=== PATIENT | female | born 1990 | race Caucasian/White ===

== ENCOUNTER 2022-08-20 14:12 | Outpatient (CLI) | payer BC ==
[2022-08-20] MEDS ORDERED: GADOTERATE MEGLUMINE 7.5 MMOL/15 ML VIAL IV ONE (14:37)
== END 2022-08-20 20:42 | disposition home or self-care (01) ==
LOC: SMI 14:12
PROVIDERS: ATTEND Specialist
DX: D25.9 Leiomyoma of uterus, unspecified (principal); N85.2 Hypertrophy of uterus
CPT/HCPCS: 72198; A9575

== ENCOUNTER 2022-09-12 08:38 | Day surgery (SDC) | payer BC ==
[2022-09-07 12:55] LABS: BASOPHILS % (AUTO) 0.3 % (0.0-2.0); EOSINOPHILS # (AUTO) 0.4 K/uL (0.0-0.4); HEMATOCRIT 42.9 % (36-48); HEMOGLOBIN 14.6 g/dL (12.0-16.0); LYMPHOCYTES # (AUTO) 3.2 K/uL (1.0-5.5); LYMPHOCYTES % (AUTO) 36.9 % (20.5-51.5); MEAN CORPUSCULAR HEMOGLOBIN 30 pg (27-31); MEAN CORPUSCULAR HGB CONC 34 % (32-36); MEAN CORPUSCULAR VOLUME 88 fL (79.0-98.0); MONOCYTES # (AUTO) 0.5 K/uL (0.0-1.0); MONOCYTES % (AUTO) 5.6 % (1.7-9.3); NEUTROPHILS # (AUTO) 4.7 K/uL (1.8-7.7); NEUTROPHILS % (AUTO) 53.2 % (40.0-70.0); PLATELET COUNT (AUTO) 283 K/uL (130-430); RED BLOOD CELL COUNT(AUTO) 4.91 MIL/uL (4.2-6.2); RED CELL DISTRIBUTION WIDTH 13.7 % (9.0-15.0); WHITE BLOOD COUNT (AUTO) 8.8 K/uL (4.8-10.8)
[2022-09-07 13:03] LABS: HCG,QUAL RESULT NEGATIVE (NEGATIVE)
[2022-09-07 13:06] LABS: BILIRUBIN,URINE NEGATIVE (NEGATIVE); BLOOD, URINE NEGATIVE (NEGATIVE); CLARITY/URINE CLEAR (CLEAR); COLOR,URINE YELLOW (YELLOW); GLUCOSE,URINE NEGATIVE (NEGATIVE); KETONES,URINE NEGATIVE (NEGATIVE); LEUKOCYTE ESTERASE ,URINE NEGATIVE (NEGATIVE); NITRITE, URINE NEGATIVE (NEGATIVE); PROTEIN URINE NEGATIVE (NEGATIVE); UROBILINOGEN,URINE 0.2 (0.2-1.0)
[~2022-09-12] VITALS: Ht 167.6 cm; Wt 97.5 kg
[~2022-09-12 08:38] MED LIST: ceFAZolin SODIUM 2 GM in D5W 50 ML IV ONE
[2022-09-12 09:27] LABS: HCG,QUAL RESULT NEGATIVE (NEGATIVE)
[2022-09-12] MEDS ORDERED: FUROSEMIDE 20 MG/2 ML VIAL IVP ONE (10:30)
[2022-09-12] MEDS ORDERED: NS IRRIG SOLN 1000 ML IR ONE (10:30)
[2022-09-12] MEDS ORDERED: DESFLURANE 15 MIN GAS INH ONE (10:30)
[2022-09-12] MEDS ORDERED: NS 1000 ML IV.SOLN IV ONE (10:30)
[2022-09-12] MEDS ORDERED: ONDANSETRON HCL 4 MG/2 ML VIAL IVP ONE (10:30)
[2022-09-12] MEDS ORDERED: MIDAZOLAM HCL 5 MG/5 ML VIAL IVP ONE (10:30)
[2022-09-12] MEDS ORDERED: BUPIVACAINE /EPINEPHRINE/PF 0.5% 30 ML VIAL INJ ONE (10:30)
[2022-09-12] MEDS ORDERED: ROCURONIUM BROMIDE 10 MG/ML (ZEMURON) IV ONE (10:30)
[2022-09-12] MEDS ORDERED: LIDOCAINE 2%, 20 ML MDV INJ ONE (10:30)
[2022-09-12] MEDS ORDERED: DEXAMETHASONE SOD PHOSPHATE 4 MG/ML VIAL IVP ONE (10:30)
[2022-09-12] MEDS ORDERED: KETOROLAC TROMETHAMINE 30 MG VIAL IVP ONE (10:30)
[2022-09-12] MEDS ORDERED: fentaNYL CITRATE 250 MCG/5 ML AMP IV ONE (10:30)
[2022-09-12] MEDS ORDERED: LR 1,000 ML IV.SOLN IV ONE (10:30)
[2022-09-12] MEDS ORDERED: SUGAMMADEX SODIUM 200 MG/2 ML VIAL IV ONE (10:30)
[2022-09-12] MEDS ORDERED: PROPOFOL 200MG/ 20ML VIAL (DIPRIVAN) IV ONE (10:30)
[2022-09-12] MEDS ORDERED: ACETAMINOPHEN I.V. 1000 MG 100 ML IV ONE (10:41)
[2022-09-12] MEDS ORDERED: HYDROmorphone 1 MG/ML INJ. CARTRIDGE IVP PRN ×2 (11:30)
[2022-09-12] MEDS ORDERED: MIDAZOLAM HCL 2 MG/2 ML VIAL (VERSED) IVP PRN (11:30)
[2022-09-12] MEDS ORDERED: MEPERIDINE HCL/PF 25 MG/ML DISP.SYRIN IVP PRN (11:30)
[2022-09-12] MEDS ORDERED: LABETALOL 100 MG/ 20ML VIAL IVP PRN (11:30)
[2022-09-12] MEDS ORDERED: hydrALAZINE HCL 20 MG/ML VIAL IVP PRN (11:30)
[2022-09-12] MEDS ORDERED: METOCLOPRAMIDE HCL 10 MG/2 ML VIAL IVP PRN (11:30)
[2022-09-12] MEDS ORDERED: OXYIR5 PO (14:28)
[2022-09-12] MEDS ORDERED: ONDANSETRON HCL 4 MG/2 ML VIAL IVP PRN (14:30)
[2022-09-12] MEDS ORDERED: OXYCODONE/ACETAMINOPHEN 5-325 TABLET PO PRN ×2 (14:30)
[2022-09-12] MEDS ORDERED: HYDROcodone/ACETAMIN 5-325 MG TAB (NORCO/ VICODIN) PO PRN (14:30)
[2022-09-12] MEDS ORDERED: METOCLOPRAMIDE HCL 10 MG/2 ML VIAL ONE (14:41)
[2022-09-12] MEDS ORDERED: HYDROmorphone 1 MG/ML INJ. CARTRIDGE ONE ×2 (14:54→14:58)
[2022-09-12] MEDS ORDERED: SIMETHICONE 80 MG TAB.CHEW PO ONE (15:30)
[2022-09-12] MEDS: LR 1,000 ML IV SCH ×2 (15:50→19:00)
[2022-09-12] MEDS ORDERED: SIMETHICONE 80 MG TAB.CHEW ONE (15:54)
[2022-09-12] MEDS ORDERED: ceFAZolin SODIUM 2 GM in D5W 100 ML IV ONE (18:00)
[2022-09-12 19:05] VITALS: BP_SYST 118
== END 2022-09-12 20:00 | disposition home or self-care (01) ==
LOC: SDS 08:38 → SMU 08:39 → SDS 20:00
PROVIDERS: ATTEND Specialist
DX: D25.1 Intramural leiomyoma of uterus (principal); R10.2 Pelvic and perineal pain; K21.9 Gastro-esophageal reflux disease without esophagitis; E66.9 Obesity, unspecified; Z20.822 Contact with and (suspected) exposure to COVID-19; Z68.36 Body mass index [BMI] 36.0-36.9, adult
CPT/HCPCS: 36415; 81003; 84703; 85025; 88305; E0190; J0131; J1100; J1170; J1885; J1940; J2001; J2250; J2405; J2704; J2765; J3010; J3465; J3490; J7030; J7060; J7120; U0003

== ENCOUNTER 2023-01-31 12:24 | Outpatient (CLI) | payer BC | END 2023-01-31 19:27 | disposition home or self-care (01) | LOC: SRD 12:24 | PROVIDERS: ATTEND Specialist | DX: N97.9 Female infertility, unspecified (principal); N92.6 Irregular menstruation, unspecified | CPT/HCPCS: 74740; 58340; Q9967 ==